=== PATIENT | female | born 1995 | race Caucasian/White ===

== ENCOUNTER → 2018-06-13 | Outpatient (CLI) | payer OTHER ==
--- NOTE | 2018-06-13 15:29 | US ---
EXAMINATION TYPE: US groin LT DATE OF EXAM: 06/13/2018 COMPARISON: NONE CLINICAL HISTORY: 22 year-old female I89.0 Lymphedema, not elsewhere classified. Palpable area within the left groin, noticed 3-4 days ago, currently on AB's Technique: Multiple sonographic images in the left inguinal region at the site of palpable concern. FINDINGS: Karate Teacher notes: Scanned over the patient's area of concern demonstrating a 4.8 x 1.3cm lymph node. This lymph node is enlarged, thickened, and hyperemic. IMPRESSION: An enlarged, thickened, and hyperemic 4.8 x 1.3 cm left inguinal lymph node at the palpable site. Thi s could reflect lymphadenitis or lymphadenopathy secondary to an upstream infectious/inflammatory pro cess. Follow-up with treatment to ensure improvement. If the finding persists or enlarges, the area c an be reimaged.
== END | disposition home or self-care (01) ==
LOC: RADUSWWP 14:10
PROVIDERS: ATTEND Family Medicine
DX: R59.0 Localized enlarged lymph nodes (principal); I89.0 Lymphedema, not elsewhere classified

== ENCOUNTER 2020-10-11 19:45 | Emergency (ER) | payer OTHER ==
[2020-10-11] MEDS ORDERED: SODIUM CHLORIDE 0.9% 1,000 ML IV ONE (20:07)
[2020-10-11] MEDS ORDERED: METOCLOPRAMIDE 5 MG/ML 2 ML VIAL IVP STA (20:09)
[2020-10-11] MEDS ORDERED: SODIUM CHLORIDE 0.9% 1,000 ML IV SCH (20:15)
[2020-10-11] MEDS ORDERED: PYRIDOXINE 100 MG/ML 1 ML VIAL IVP SCH (20:15)
[2020-10-11 20:33] LABS: Basophils % (A) 0 %; Eosinophils # (A) 0.2 k/uL (0-0.7); Eosinophils % (A) 1 %; HCT 42.6 % (34.0-46.0); HGB 14.6 gm/dL (11.4-16.0); Lymphocytes # (A) 1.3 k/uL (1.0-4.8); Lymphocytes % (A) 6 %; MCH 31.6 pg (25.0-35.0); MCHC 34.3 g/dL (31.0-37.0); MCV 92.1 fL (80.0-100.0); Mean Platelet Volume 9.3; Monocytes # (A) 0.7 k/uL (0-1.0); Monocytes % (A) 4 %; Neutrophils # (A) 17.5 k/uL (1.3-7.7); Neutrophils % (A) 88 %; Platelet Count 228 k/uL (150-450); RBC 4.63 m/uL (3.80-5.40); RDW 12.8 % (11.5-15.5); WBC 19.9 k/uL (3.8-10.6)
[2020-10-11 20:37] LABS: Appearance,Urine Cloudy (Clear); Bacteria,Urine Rare /hpf; Bilirubin,Urine Negative (Negative); Blood,Urine Negative (Negative); Color,Urine Yellow; Glucose,Urine (UA) Negative (Negative); Ketones,Urine Trace (Negative); Leukocyte Esterase,Urine Large (Negative); Mucus,Urine Moderate /hpf; Nitrite,Urine Negative (Negative); PH, Urine 5.5 (5.0-8.0); Protein,Urine 1+ (Negative); RBC,Urine 4 /hpf (0-5); Squamous Epithelial Cell,Urine 14 /hpf (0-4); Urobilinogen,Urine <2.0 mg/dL (<2.0); WBC,Urine 23 /hpf (0-5)
[2020-10-11 21:06] LABS: ALT 12 U/L (4-34); AST 25 U/L (14-36); African American GFR (CKD) >90 (>60 ml/min/1.73 sqM); Albumin 4.6 g/dL (3.5-5.0); Alkaline Phosphatase 60 U/L (38-126); Anion Gap 11 mmol/L; Blood Urea Nitrogen 9 mg/dL (7-17); Calcium 9.9 mg/dL (8.4-10.2); Carbon Dioxide 24 mmol/L (22-30); Chloride 105 mmol/L (98-107); Glucose 109 mg/dL (74-99); Magnesium 1.9 mg/dL (1.6-2.3); Non-African American GFR(CKD) >90 (>60 ml/min/1.73 sqM); Potassium 3.9 mmol/L (3.5-5.1); Sodium 140 mmol/L (137-145); Total Bilirubin 0.6 mg/dL (0.2-1.3); Total Protein 7.9 g/dL (6.3-8.2)
--- NOTE | 2020-10-11 21:57 | ED ---
Nausea/Vomiting/Diarrhea HPI - General Chief complaint: Nausea/Vomiting/Diarrhea Stated complaint: Vomiting, 15 weeks Time Seen by Provider: 10/11/20 19:56 Source: patient, family Mode of arrival: wheelchair Limitations: no limitations - History of Present Illness Initial comments: 25-year-old female who is currently presenting today for chief complaint of nausea and vomiting since 4 PM today. Patient states she believes she ate something bad. She states that she has been nauseated throughout the entire , and initially had what she thought was hyperemesis but states she was not formally diagnosed by Dr. Salter. Patietn states she has consistent nausea, but the vomiting has stopped x 2 weeks and began again at 4PM today. Pt denies abdominal pain, pelvic pain, vomiting blood, blood in stools, diarrhea, flank pain, dysuria, urgency frequency or vaginal discharge. Patietn denies fevers. Patient appears nontoxic in no acute distress on arrival. Patient HR is elvated. Pt denies chest pain or shortness of breath. - Related Data Home Medications Medication Instructions Recorded Confirmed No Known Home Medications 10/11/20 10/11/20 Allergies Allergy/AdvReac Type Severity Reaction Status Date / Time No Known Allergies Allergy Verified 10/11/20 20:39 Review of Systems ROS Statement: Those systems with pertinent positive or pertinent negative responses have been documented in the HPI. ROS Other: All systems not noted in ROS Statement are negative. Past Medical History Additional Past Medical History / Comment(s): migraines, abdominal pain and blood in stool History of Any Multi-Drug Resistant Organisms: None Reported Past Surgical History: No Surgical Hx Reported Additional Past Anesthesia/Blood Transfusion Reaction / Comment(s): never had anesthesia Past Psychological History: No Psychological Hx Reported Smoking Status: Current every day smoker Past Alcohol Use History: None Reported Past Drug Use History: None Reported General Exam - General Exam Comments Initial Comments: General: The patient is awake and alert, in no distress Eye: +3 mm pupils are equal, round and reactive to light, extra-ocular movements are intact. No nystagmus. There is normal conjunctiva bilaterally. No signs of icterus. Ears, nose, mouth and throat: There are moist mucous membranes and no oral lesions. Neck: The neck is supple, there is no tenderness or JVD. Cardiovascular: There is a regular rate and rhythm. No murmur, rub or gallop is appreciated. Respiratory: Lungs are clear to auscultation, respirations are non-labored, breath sounds are equal. No wheezes, stridor, rales, or rhonchi. Gastrointestinal: Soft, non-distended, non-tender abdomen without masses or organomegaly noted. There is no rebound or guarding present. Musculoskeletal: Normal ROM, no tenderness. Strength 5/5. Sensation intact. Radial pulses equal bilaterally 2+. Neurological: A&O x 3. CN II-XII intact grossly, There are no obvious motor or sensory deficits. Coordination appears grossly intact. Speech is normal. Skin: Skin is warm and dry and no rashes or lesions are noted. Psychiatric: Cooperative, appropriate mood & affect, normal judgment. Limitations: no limitations Course Vital Signs 10/11/20 10/11/20 19:48 22:00 Temperature 97.9 F 98.7 F Pulse Rate 103 H 63 Respiratory 20 18 Rate Blood Pressure 98/94 100/59 O2 Sat by Pulse 97 97 Oximetry Medical Decision Making - Medical Decision Making Leukocytosis however no fevers patient appears nontoxic. She has benign abdominal exam she denies vaginal discharge she denies urinary symptoms urine sample is contaminated. Culture pending. Patient has no flank or back pain. Patient has not had vomiting since reglan. pt hydrated. she states she is SO much better--discussed white count, recommended repeat labs. Patient is agreeable to care plan and discharge. Dr Prado agreeable to care plan. - Lab Data Result diagrams: 10/11/20 20:16 10/11/20 20:16 Lab Results 10/11/20 10/11/20 10/11/20 Range/Units 20:16 20:16 20:16 WBC 19.9 H (3.8-10.6) k/uL RBC 4.63 (3.80-5.40) m/uL Hgb 14.6 (11.4-16.0) gm/dL Hct 42.6 (34.0-46.0) % MCV 92.1 (80.0-100.0) fL MCH 31.6 (25.0-35.0) pg MCHC 34.3 (31.0-37.0) g/dL RDW 12.8 (11.5-15.5) % Plt Count 228 (150-450) k/uL MPV 9.3 Neutrophils % 88 % Lymphocytes % 6 % Monocytes % 4 % Eosinophils % 1 % Basophils % 0 % Neutrophils # 17.5 H (1.3-7.7) k/uL Lymphocytes # 1.3 (1.0-4.8) k/uL Monocytes # 0.7 (0-1.0) k/uL Eosinophils # 0.2 (0-0.7) k/uL Basophils # 0.0 (0-0.2) k/uL Sodium 140 (137-145) mmol/L Potassium 3.9 (3.5-5.1) mmol/L Chloride 105 (98-107) mmol/L Carbon Dioxide 24 (22-30) mmol/L Anion Gap 11 mmol/L BUN 9 (7-17) mg/dL Creatinine 0.57 (0.52-1.04) mg/dL Est GFR (CKD-EPI)AfAm >90 (>60 ml/min/1.73 sqM) Est GFR (CKD-EPI)NonAf >90 (>60 ml/min/1.73 sqM) Glucose 109 H (74-99) mg/dL Calcium 9.9 (8.4-10.2) mg/dL Magnesium 1.9 (1.6-2.3) mg/dL Total Bilirubin 0.6 (0.2-1.3) mg/dL AST 25 (14-36) U/L ALT 12 (4-34) U/L Alkaline Phosphatase 60 (38-126) U/L Total Protein 7.9 (6.3-8.2) g/dL Albumin 4.6 (3.5-5.0) g/dL Urine Color Yellow Urine Appearance Cloudy H (Clear) Urine pH 5.5 (5.0-8.0) Ur Specific Manquin 1.030 (1.001-1.035) Urine Protein 1+ H (Negative) Urine Glucose (UA) Negative (Negative) Urine Ketones Trace H (Negative) Urine Blood Negative (Negative) Urine Nitrite Negative (Negative) Urine Bilirubin Negative (Negative) Urine Urobilinogen <2.0 (<2.0) mg/dL Ur Leukocyte Esterase Large H (Negative) Urine RBC 4 (0-5) /hpf Urine WBC 23 H (0-5) /hpf Ur Squamous Epith Cells 14 H (0-4) /hpf Urine Bacteria Rare H (None) /hpf Urine Mucus Moderate H (None) /hpf Disposition Clinical Impression: Vomiting, Leukocytosis Disposition: HOME SELF-CARE Condition: Good Instructions (If sedation given, give patient instructions): Nausea and Vomiting in (ED) Additional Instructions: Please use medication as discussed. Please follow-up with OBGYN in the next 2-3 days. Return for worsening symptoms. Please return to emergency room if the symptoms increase or worsen or for any other concerns. Is patient prescribed a controlled substance at d/c from ED?: No Referrals: Davie Salter DO [Primary Care Provider] - 1-2 days Time of Disposition: 22:37
[2020-10-11 22:03] VITALS: BP 100/59; PULSE 63; RESP 18; TEMP 98.7
== END 2020-10-11 23:01 | disposition home or self-care (01) ==
LOC: EC 19:45
DX: O21.9 Vomiting of pregnancy, unspecified (principal); O99.112 Other diseases of the blood and blood-forming organs and certain disorders involving the immune mechanism complicating pregnancy, second trimester; O99.332 Smoking (tobacco) complicating pregnancy, second trimester; D72.829 Elevated white blood cell count, unspecified; F17.200 Nicotine dependence, unspecified, uncomplicated; Z3A.15 15 weeks gestation of pregnancy
CPT/HCPCS: 36415; 80053; 83735; 85025; 81001; 87086; 99284; 96374; 96375; 96361; J3415; J2765

== ENCOUNTER 2021-02-04 00:42 | Outpatient (CLI) | payer OTHER ==
[2021-02-04 01:43] LABS: Amorphous Sediment,Urine Few /hpf; Appearance,Urine Cloudy (Clear); Bacteria,Urine Rare /hpf; Bilirubin,Urine Negative (Negative); Blood,Urine Negative (Negative); Color,Urine Yellow; Glucose,Urine (UA) Negative (Negative); Ketones,Urine Negative (Negative); Leukocyte Esterase,Urine Large (Negative); Mucus,Urine Rare /hpf; Nitrite,Urine Negative (Negative); PH, Urine 7.5 (5.0-8.0); Protein,Urine Negative (Negative); RBC,Urine 4 /hpf (0-5); Specific Gravity,Urine 1.012 (1.001-1.035); Squamous Epithelial Cell,Urine 8 /hpf (0-4); Urobilinogen,Urine <2.0 mg/dL (<2.0); WBC,Urine 20 /hpf (0-5)
[2021-02-04 03:49] VITALS: BP 118/72; PULSE 95; RESP 18; TEMP 97.9
--- NOTE | 2021-02-19 08:41 | P.MSEPDOC ---
Presenting Problems - Arrival Data Date of Arrival on Unit: 02/04/21 Time of Arrival on Unit: 00:42 Mode of Transport: Ambulatory - Complaint OB-Reason for Admission/Chief Complaint: Possible Onset of Labor Comment: Pt arrives today with abdominal cramping for the last 2 hours. states she. originally felt like it may have been gas pain or that she had to use the bathroom but. the cramping hasnt gone away. Medical History - Information : 1 Para: 0 Term: 0 : 0 Abortions: Spontaneous or Elective: 0 Number of Living Children: 0 - Gestational Age Gestational Age by ADELAIDE (wks/days): 32 Weeks and 2 Days Review of Systems - Review of Systems Constitutional: No problems Breast: No problems ENT: No problems Cardiovascular: No problems Respiratory: No problems Gastrointestinal: No problems Genitourinary: No problems Musculoskeletal: No problems Neurological: No problems Skin: No problems Vital Signs - Temperature Temperature: 97.9 F Temperature Source: Oral - Pulse Right Brachial Pulse Rate: 95 Pulse Assessment Method: Automatic Cuff - Respirations Respiratory Rate: 18 Oxygen Delivery Method: Room Air O2 Sat by Pulse Oximetry: 98 - Blood Pressure Right Arm Blood Pressure: 118/72 Blood Pressure Mean: 87 Blood Pressure Source: Automatic Cuff Medical Screen Scoring - Cervical Exam Dilation (cm): 0 Effacement (%): 0 Station: -3 Membranes: Intact - Uterine Contractions Frequency From (mins): 2 Frequency To (mins): 10 Duration From (seconds): 35 Duration To (seconds): 60 Intensity: Absent Resting: Soft to palpation - Assessment - Baby A Baseline FHR: 135 Heart Rate - NICHD Category: Category I (Normal) NST: Reactive Physician Notification - Physician Notified Physician Notified Date: 02/04/21 Physician Notified Time: 00:37 Physician: Davie Salter New Order Received: Yes - Notification Comment Comment: This RN notified of negative FFN, UA results, pt not feeling any irregular contractions and reactive NST. Orders to d/c home. Maternal Triage Index - Stat/Priority 1 Stat Priority 1: No - Urgent/Priority 2 Urgent Priority 2: Yes Provider Notified: Davie Salter Provider Notified Time: 00:53 Criteria Met for Priority 2: <34 wks c/o of, or detectable, uterine ctx. Notified by Vinnie Benítez - Non-Urgent/Priority 4 Non-Urgent Priority 4: No - Scheduled/Requesting Priority 5 Scheduled/Requesting Priority 5: No Disposition - Disposition OB Disposition: Discharge to home, Written follow up instructions reviewed Discharge Date: 02/04/21 Discharge Time: 03:41 I agree with the RN Medical Screening Exam: Yes Case reviewed; plan agreed upon as documented in EMR&OBIX.: Yes Diagnosis: FALSE LABOR BEFORE 37 COMPLETED WEEKS OF GEST, THIRD TRI
== END 2021-02-04 03:41 | disposition home or self-care (01) ==
LOC: FBPOP 00:42
PROVIDERS: ATTEND Obstetrics & Gynecology
DX: O47.03 False labor before 37 completed weeks of gestation, third trimester (principal); Z3A.32 32 weeks gestation of pregnancy
CPT/HCPCS: 59025; 82731; 81001; G0463; 99213

== ENCOUNTER 2021-03-07 23:26 | Outpatient (CLI) | payer OTHER ==
[2021-03-08] LABS: Amphetamine Screen,Urine Not Detected (NotDetected); Barbiturate Screen,Urine Not Detected (NotDetected); Benzodiazepines Screen,Urine Not Detected (NotDetected); Cocaine Screen,Urine Not Detected (NotDetected); Methadone Screen, Urine Not Detected (NotDetected); Opiate Screen,Urine Not Detected (NotDetected); Oxycodone Screen, Urine Not Detected (NotDetected); Phencyclidine Screen,Urine Not Detected (NotDetected); Tricyclic Antidepressant,Urine Not Detected (NotDetected); Urn Cannabinoid Scrn Detected (NotDetected)
[2021-03-08 00:04] VITALS: BP 134/85; PULSE 96; RESP 18; TEMP 97.5
--- NOTE | 2021-03-16 06:05 | P.MSEPDOC ---
Presenting Problems - Arrival Data Date of Arrival on Unit: 03/07/21 Time of Arrival on Unit: 23:26 Mode of Transport: Wheelchair - Complaint OB-Reason for Admission/Chief Complaint: NST, Observation/Evaluation Comment: Here for serial BPs & NST per Dr. Siegel. Medical History - Information : 1 Para: 0 Term: 0 : 0 Abortions: Spontaneous or Elective: 0 Number of Living Children: 0 - Gestational Age Gestational Age by ADELAIDE (wks/days): 36 Weeks and 6 Days - History Complications: Smoker, Hx. Substance Abuse Comment: Marijuana Review of Systems - Review of Systems Constitutional: No problems Breast: No problems ENT: No problems Cardiovascular: No problems Respiratory: No problems Gastrointestinal: No problems Genitourinary: No problems Musculoskeletal: No problems Neurological: No problems Skin: No problems Vital Signs - Temperature Temperature: 97.5 F Temperature Source: Temporal Artery Scan - Pulse Right Pulse Oximetery Pulse Rate: 96 Pulse Assessment Method: Pulse Oximetry - Respirations Respiratory Rate: 18 Oxygen Delivery Method: Room Air O2 Sat by Pulse Oximetry: 99 - Blood Pressure Right Arm Blood Pressure: 134/85 Blood Pressure Mean: 101 Blood Pressure Source: Automatic Cuff Medical Screen Scoring - Uterine Contractions Intensity: Absent Resting: Soft to palpation - Assessment - Baby A Baseline FHR: 150 Heart Rate - NICHD Category: Category I (Normal) NST: Reactive Physician Notification - Physician Notified Physician Notified Date: 03/08/21 Physician Notified Time: 23:53 Physician: Azeem Siegel New Order Received: Yes - Notification Comment Comment: Pt here after speak with Dr. Siegel. regarding her BPs at home. 135/89 & 123/98 were the. BPs that she had at home. Pt states that she has not. had any problems with her BP in the past and that she. has not had any issues with her BP this . Pt. states that she was taking her BP at home just to be. safe and that she was not instructed to do so by her. MD. Pt also sees MFM to keep an eye on the baby d/t. possible SGA. Spots in vision are present a few times a. day per patient. Pt states that she saw spots when. she was not as well. RN spoke with Dr. Siegel regarding. patient's BPs being WNL. NST reactive, no concerns at. this time. Per Dr. Siegel, pt may DC home and follow. up with Dr. Salter in the office. Maternal Triage Index - Maternal Triage Index Presenting for scheduled procedure w/no complaint: No - Stat/Priority 1 Stat Priority 1: No - Urgent/Priority 2 Urgent Priority 2: No - Prompt/Priority 3 Prompt Priority 3: No - Non-Urgent/Priority 4 Non-Urgent Priority 4: Yes Criteria Met for Priority 4: Pt here for serial BPs Disposition - Disposition OB Disposition: Discharge to home Discharge Date: 03/08/21 Discharge Time: 00:00 I agree with the RN Medical Screening Exam: Yes Case reviewed; plan agreed upon as documented in EMR&OBIX.: Yes Diagnosis: RELATED CONDITIONS, UNSPECIFIED, THIRD TRIMESTER (No evidence of hypertension. monitoring was reassuring. At this time there is no evidence of maternal or compromise and patient's felt be stable for discharge home follow up with her primary dental financial coordinator as scheduled.)
== END 2021-03-08 | disposition home or self-care (01) ==
LOC: FBPOP 23:26
PROVIDERS: ATTEND Obstetrics & Gynecology
DX: O26.893 Other specified pregnancy related conditions, third trimester (principal); R03.0 Elevated blood-pressure reading, without diagnosis of hypertension; O99.333 Smoking (tobacco) complicating pregnancy, third trimester; F17.200 Nicotine dependence, unspecified, uncomplicated; Z3A.36 36 weeks gestation of pregnancy
CPT/HCPCS: 59025; 80306; G0463; 99213

== ENCOUNTER 2021-03-28 22:29 | Inpatient (IN) | payer OTHER ==
[~2021-03-28 22:29] MED LIST: ROPIVACAINE 5MG/ML 20ML VIAL ONE; SODIUM CHLORIDE 0.9% 100 ML BAG ONE; fentaNYL (PF) 50 MCG/ML 5 ML AMP ONE
[2021-03-29] MEDS: LACTATED RINGERS 1,000 ML IV SCH ×3 (00:07→14:22)
[2021-03-29 00:23] LABS: Basophils % (A) 0 %; Eosinophils # (A) 0.1 k/uL (0-0.7); Eosinophils % (A) 1 %; HCT 35.9 % (34.0-46.0); HGB 11.5 gm/dL (11.4-16.0); Hypochromasia Moderate; Lymphocytes # (A) 1.6 k/uL (1.0-4.8); Lymphocytes % (A) 15 %; MCH 26.5 pg (25.0-35.0); Mean Platelet Volume 11.8; Monocytes # (A) 0.4 k/uL (0-1.0); Monocytes % (A) 4 %; Neutrophils # (A) 7.8 k/uL (1.3-7.7); Neutrophils % (A) 76 %; Platelet Count 160 k/uL (150-450); Poikilocytosis Slight; RBC 4.32 m/uL (3.80-5.40); RDW 15.5 % (11.5-15.5); WBC 10.2 k/uL (3.8-10.6)
[2021-03-29 00:49] LABS: Amphetamine Screen,Urine Not Detected (NotDetected); Barbiturate Screen,Urine Not Detected (NotDetected); Benzodiazepines Screen,Urine Not Detected (NotDetected); Cocaine Screen,Urine Not Detected (NotDetected); Methadone Screen, Urine Not Detected (NotDetected); Opiate Screen,Urine Not Detected (NotDetected); Oxycodone Screen, Urine Not Detected (NotDetected); Phencyclidine Screen,Urine Not Detected (NotDetected); Tricyclic Antidepressant,Urine Not Detected (NotDetected); Urn Cannabinoid Scrn Detected (NotDetected)
[2021-03-29] MEDS ORDERED: TERBUTALINE 1 MG/ML VIAL SQ PRN (06:18)
[2021-03-29] MEDS ORDERED: CARBOPROST TROMETHAMINE 250 MCG/ML 1 ML AMP IM PRN (06:18)
[2021-03-29] MEDS ORDERED: METHYLERGONOVINE 0.2 MG/ML 1 ML AMP IM PRN (06:18)
[2021-03-29] MEDS ORDERED: OXYTOCIN 10 UNIT/ML 1 ML VIAL IM PRN (06:18)
[2021-03-29] MEDS ORDERED: LIDOCAINE 0.5% (PF) 5 MG/ML (50 ML SDV) SQ PRN (06:18)
[2021-03-29] MEDS ORDERED: OXYTOCIN 30 UNITS/500 ML NS 30 UNIT in SALINE 1 500ML.BAG IV SCH (06:30)
--- NOTE | 2021-03-29 06:47 | P.HPOB ---
History of Present Illness H&P Date: 03/29/21 Chief Complaint: Mucous plug This patient is a 25-year-old avid a 1 para 0 female estimated date of confinement 03/30/2021 estimated gestational age 39-6/7 weeks who presented late last night with complaints of mucous plug. Patient had evaluation and there was no evidence of rupture of membranes, however on monitoring patient was noted to have occasional variable decelerations. These were mild, but recurrent, and in general the heart tones were reassuring with good variability. Patient's care is per Dr. Salter and is complicated by several factors including substance abuse (this patient uses marijuana on a daily basis), abnormal quad screen, and marginal placental cord insertion. Patient was referred to maternal- medicine and was supposed to be getting nonstress tests twice week and biophysical profile once a week. Patient however has been noncompliant with a lot of this testing. Review of Systems Genitourinary: Reports Menstruation: Reports amenorrhea Past Medical History Additional Past Medical History / Comment(s): migraines, abdominal pain and blood in stool History of Any Multi-Drug Resistant Organisms: None Reported Past Surgical History: No Surgical Hx Reported Additional Past Surgical History / Comment(s): Colonoscopy Past Anesthesia/Blood Transfusion Reactions: No Reported Reaction Additional Past Anesthesia/Blood Transfusion Reaction / Comment(s): never had anesthesia Past Psychological History: No Psychological Hx Reported Smoking Status: Current every day smoker Past Alcohol Use History: None Reported Past Drug Use History: Marijuana - Past Family History Mother Family Medical History: Thyroid Disorder Brother(s) Additional Family Medical History / Comment(s): Cerebral Palsy Medications and Allergies Home Medications Medication Instructions Recorded Confirmed Type Doxylamine Succinate [Unisom] 25 mg PO DAILY 02/04/21 03/07/21 History Pnv No.95/Ferrous Fum/Folic AC 1 each PO DAILY 02/04/21 03/07/21 History [ Multivitamin Tablet] Allergies Allergy/AdvReac Type Severity Reaction Status Date / Time No Known Allergies Allergy Verified 03/28/21 22:38 Exam Vital Signs Temp Pulse Resp BP 03/29/21 00:00 98.3 F 80 16 120/75 03/28/21 23:37 97.0 F L 86 16 131/85 Intake and Output 03/28/21 03/28/21 03/29/21 14:59 22:59 06:59 Other: # Voids 2 Weight 64.41 kg 64.41 kg - OBG Physical Exam Abdomen: bowel sounds normal, no diffuse tenderness, no bruit present, no guarding noted, no hepatomegaly, no splenomegaly, no mass Vulva: both: normal Vagina: normal moisture, no discharge Cervix: no lesion (Cervix is 2-3 cm 50% effaced), no discharge Uterus: enlarged Results Renal blood work shows she is O positive, rubella immune, hepatitis B negative, RPR nonreactive, HIV is nonreactive positive patient had a positive Chlamydia with a negative test of cure. Group B strep was negative, ultrasounds per [facility] shows a marginal cord insertion. Result Diagrams: 03/29/21 00:02 Abnormal Lab Results - Last 24 Hours (Table) 03/28/21 03/29/21 Range/Units 23:55 00:02 Neutrophils # 7.8 H (1.3-7.7) k/uL U Marijuana (THC) Screen Detected H (NotDetected) Assessment and Plan Assessment: This is a 25-year-old 1 para 0 female 39-6/7 weeks gestation who is admitted last evening for observation due to variable decelerations on heart monitoring, known marginal cord insertion, history of abnormal quad screen, and daily substance abuse. Patient was initially admitted for observati on overnight. She is in early labor. Plan at this time is to proceed with rupture membranes and augmentation of labor. I've discussed treatment plan with the patient and her partner. Dr. Salter will take over management of labor at this time. (1) 40 weeks gestation of Current Visit: Yes Status: Acute Code(s): Z3A.40 - 40 WEEKS GESTATION OF SNOMED Code(s): 36390770 (2) Marginal insertion of umbilical cord Current Visit: Yes Status: Acute Code(s): QII5598 - SNOMED Code(s): 99334805 (3) Substance abuse affecting in third trimester, antepartum Current Visit: Yes Status: Acute Code(s): O99.323 - DRUG USE COMPLICATING , THIRD TRIMESTER SNOMED Code(s): 88682166 (4) Normal labor Current Visit: Yes Status: Acute Code(s): O80 - ENCOUNTER FOR FULL-TERM UNCOMPLICATED DELIVERY; Z37.9 - OUTCOME OF DELIVERY, UNSPECIFIED SNOMED Code(s): 19728947
[2021-03-29] MEDS ORDERED: BUTORPHANOL 1 MG/ML 1 ML VIAL IV PRN (07:05)
--- NOTE | 2021-03-29 07:16 | P.MSEPDOC ---
Presenting Problems - Arrival Data Date of Arrival on Unit: 03/28/21 Time of Arrival on Unit: 23:37 Mode of Transport: Ambulatory - Complaint OB-Reason for Admission/Chief Complaint: Possible Onset of Labor Comment: Patient arrives to triage and states that she has been losing part of her. mucous plug and had some spotting today. Patient states her contractions have become more regular and are approximately 10 minutes apart. Patient states she was dilitated to 1.[address] Salter. Medical History - Information : 1 Para: 0 Term: 0 : 0 Abortions: Spontaneous or Elective: 0 Number of Living Children: 0 - Gestational Age Gestational Age by ADELAIDE (wks/days): 39 Weeks and 6 Days - History Complications: Smoker, Hx. Substance Abuse Comment: Patient uses THC Daily Review of Systems - Review of Systems Constitutional: No problems Breast: No problems ENT: No problems Cardiovascular: No problems Respiratory: No problems Gastrointestinal: No problems Genitourinary: No problems Musculoskeletal: No problems Neurological: No problems Skin: No problems Vital Signs - Temperature Temperature: 98.3 F Temperature Source: Temporal Artery Scan - Pulse Pulse Oximetery Pulse Rate: 80 Pulse Assessment Method: Automatic Cuff - Respirations Respiratory Rate: 16 Oxygen Delivery Method: Room Air - Blood Pressure Sitting Blood Pressure: 120/75 Blood Pressure Mean: 90 Blood Pressure Source: Automatic Cuff Medical Screen Scoring - Cervical Exam Dilation (cm): 1.5 Effacement (%): 50 Station: -2 Membranes: Intact - Uterine Contractions Resting: Soft to palpation - Assessment - Baby A Baseline FHR: 135 Heart Rate - NICHD Category: Category I (Normal) Physician Notification - Physician Notified Physician Notified Date: 03/29/21 Physician Notified Time: 22:46 Physician: Azeem Siegel New Order Received: Yes - Notification Comment Comment: Recheck cervix in one hour, if no change made, okay to discharge patient home with instructions. 2319: Orders given to watch patient for a total of 2 hours if any more variable decelerations noted call physician with report, patient to come back to the hospital tomorrow am between 8-10am for BPP. [id number] Physician reviews strip more variable decelerations noted, orders given to admit patient as an OBV at this time, obtain iv access, intiate fluids, draw CBC and type and screen and send a urine tox screen at this time. Orders given for continuous monitoring. Maternal Triage Index - Prompt/Priority 3 Prompt Priority 3: Yes Criteria Met for Priority 3: Patient is 39 5/7 arrives to unit with complaint of contractions that have intensified intensity and frequency. Patient states she lost her mucus plug today and noted some "blood" in the discharge. 2 variable decelerations noted coming off of an acceleration Disposition - Disposition OB Disposition: Admit, LDRP Suite Transferred to:: Suite 14 I agree with the RN Medical Screening Exam: Yes Case reviewed; plan agreed upon as documented in EMR&OBIX.: Yes Diagnosis: ENCOUNTER FOR FULL-TERM UNCOMPLICATED DELIVERY
[2021-03-29] MEDS ORDERED: diphenhydrAMINE 25 MG CAP PO PRN (21:10)
[2021-03-29] MEDS ORDERED: diphenhydrAMINE 50 MG/ML 1 ML VIAL IVP PRN ×2 (21:10)
[2021-03-29] MEDS ORDERED: ACETAMINOPHEN TAB 325 MG TAB PO PRN (21:10)
[2021-03-29] MEDS ORDERED: HYDROCORTISONE 2.5% RECTAL CREAM 30 GM TUBE RECTAL PRN (21:10)
[2021-03-29] MEDS ORDERED: ZOLPIDEM 5 MG TAB PO PRN (21:10)
[2021-03-29] MEDS ORDERED: SIMETHICONE 80 MG CHEWABLE PO PRN (21:10)
[2021-03-29] MEDS ORDERED: LANOLIN CREAM 5 GM TUBE TOPICAL PRN (21:10)
[2021-03-29] MEDS ORDERED: BENZOCAINE/MENTHOL SPRAY 1 GM/SPRAY AEROSOL TOPICAL PRN (21:10)
[2021-03-29] MEDS ORDERED: diphenhydrAMINE 50 MG CAP PO PRN (21:10)
--- NOTE | 2021-03-29 21:17 | P.PROBDLV ---
Vaginal Delivery Note - . Vaginal Delivery Note: Progressed complete and pushing with heart rate between 80s and 100s with pushing and not recovering to above 105. The sig on for almost 8-10 minutes on she was applied she was breathing baby on slowly but she was in significant pain and was asking for assistance in delivery and with the heart tones then 70s to 80s vacuum was applied due to heart tones it was pumped to 40 mmHg and with gentle traction and baby was brought down there was a pop off at that point we a bandoned the vacuum was only one pop off and she was able to bring the baby down from +2 to in 1 push and then delivered a viable female over intact perineum from left occiput anterior position. Nuchal cord 1 was noted and easily reduced and then anterior posterior shoulders were easily delivered gentle downward upper traction followed by the remainder the baby. Mouth nares were then bulb suctioned and baby was placed on mother's abdomen where nursery personnel was present and assumed care and the umbilical course to pulsate for 30 seconds prior to clamping cutting. Once this was accomplished placenta was then delivered intact Pitocin was added to the IV. Left periurethral/vaginal wall avulsion was then reapproximated with one interrupted 3-0 Vicryl suture fundal Xylocaine for analgesia. Mother and baby are both stable following delivery. scores were 9 and 9 at one and 5 minutes respectively and the weight was 6 lbs. 1 oz.
[2021-03-29] MEDS: IBUPROFEN 600 MG TAB PO SCH (23:38)
[2021-03-30] MEDS: LACTATED RINGERS 1,000 ML IV SCH ×3 (00:44→00:46)
[2021-03-30] MEDS: IBUPROFEN 600 MG TAB PO SCH ×3 (05:51→18:33)
--- NOTE | 2021-03-30 07:34 | P.PNOBGVD ---
Subjective - Subjective Principal diagnosis: day 1 Interval history: Overall Britni is doing very well. She is ambulating, voiding and tolerating her diet. She voices no complaints. Patient reports: Reports appetite normal, Reports voiding normally, Reports pain well controlled, Reports ambulating normally : doing well Objective - Latest Vital Signs Latest vital signs: Vital Signs Temp Pulse Resp BP Pulse Ox 03/30/21 04:00 99.1 F 78 17 126/80 97 03/29/21 23:15 82 152/82 03/29/21 22:45 75 153/83 03/29/21 22:15 76 141/84 03/29/21 22:00 78 136/80 03/29/21 21:45 80 135/75 03/29/21 21:30 82 134/75 03/29/21 21:15 98.7 F 90 18 135/72 100 Intake and Output 03/29/21 03/30/21 03/30/21 22:59 06:59 14:59 Intake Total 61.867 Balance 61.867 Intake: Intake, IV Titration 61.867 Amount Oxytocin 30 Units/500 ml 61.867 Ns 30 unit In Saline 1 500ml.bag @ Per Protocol IV .Q0M [facility] Rx#:[id number] Other: # Voids 1 - Exam Lungs: bilateral: normal Chest: Normal S1, Normal S2 Extremities: Present: normal Abdomen: Present: normal appearance, soft Uterus: Present: normal, firm
[2021-03-30] MEDS: SENNOSIDES-DOCUSATE SODIUM 1 EACH TAB PO SCH (07:45)
[2021-03-31] MEDS: IBUPROFEN 600 MG TAB PO SCH ×3 (00:22→10:37)
[2021-03-31] MEDS: SENNOSIDES-DOCUSATE SODIUM 1 EACH TAB PO SCH ×2 (00:24→10:20)
--- NOTE | 2021-03-31 08:00 | P.DS ---
Providers Date of admission: 03/29/21 06:18 Expected date of discharge: 03/31/21 Attending physician: Azeem Siegel Primary care physician: Stated None Hospital Course: Patient is doing very well this morning day 2. She is ambulating, voiding and tolerating her diet. She voices no complaints and requests discharge home today. Vital signs are stable and afebrile. Heart regular, lungs clear, extremities are without pain. Abdomen is soft and uterus is firm. Lochia is reported light. Assessment day 2. Plan discharged home follow up with me in 6 weeks. Prescription for Motrin was born to the pharmacy. Patient Condition at Discharge: Good Plan - Discharge Summary New Discharge Prescriptions: New Ibuprofen [Motrin] 600 mg PO Q6HR PRN #30 tab PRN Reason: Pain No Action Pnv No.95/Ferrous Fum/Folic AC [ Multivitamin Tablet] 1 each PO DAILY Doxylamine Succinate [Unisom] 25 mg PO DAILY Discharge Medication List Doxylamine Succinate [Unisom] 25 mg PO DAILY 02/04/21 [History] Pnv No.95/Ferrous Fum/Folic AC [ Multivitamin Tablet] 1 each PO DAILY 02/04/21 [History] Ibuprofen [Motrin] 600 mg PO Q6HR PRN #30 tab 03/31/21 [Rx] Follow up Appointment(s)/Referral(s): Davie Salter DO [Doctor of Osteopathic Medicine] - 05/11/21 11:00 am Activity/Diet/Wound Care/Special Instructions: No heavy Lifting, limit stairs and driving, and pelvic rest. If any high temperatures, heavy bleeding, or severe pain call my office Discharge Disposition: HOME SELF-CARE
[2021-03-31 09:53] VITALS: BP 117/75; PULSE 63; RESP 20; TEMP 97.8
== END 2021-03-31 11:00 | disposition home or self-care (01) | DRG 806 ==
LOC: FBPOP 22:29 → 4FBP 23:42 → OBSVTOIN 03-29 06:18
PROVIDERS: ADMIT Obstetrics & Gynecology; ATTEND Obstetrics & Gynecology
PROC: 10E0XZZ Delivery of Products of Conception, External Approach (ICD-10-PCS; principal; 2021-03-29)
PROC: 10D07Z6 Extraction of Products of Conception, Vacuum, Via Natural or Artificial Opening (ICD-10-PCS; 2021-03-29)
DX: O69.81X0 Labor and delivery complicated by cord around neck, without compression, not applicable or unspecified (principal); O99.324 Drug use complicating childbirth; Z37.0 Single live birth; Z91.19 Patient's noncompliance with other medical treatment and regimen; G43.909 Migraine, unspecified, not intractable, without status migrainosus; O99.334 Smoking (tobacco) complicating childbirth; F17.200 Nicotine dependence, unspecified, uncomplicated; F12.90 Cannabis use, unspecified, uncomplicated; O76 Abnormality in fetal heart rate and rhythm complicating labor and delivery; Z3A.40 40 weeks gestation of pregnancy
CPT/HCPCS: 59025; 80306; 85025; 86850; 86900; 86901; 99213

== ENCOUNTER 2021-04-04 00:14 | Observation (INO) | payer OTHER ==
[2021-04-04] MEDS ORDERED: SODIUM CHLORIDE 0.9% 500 ML 500 ML IV STA (00:41)
[2021-04-04] MEDS ORDERED: ACETAMINOPHEN TAB 500 MG TAB PO STA (00:46)
[2021-04-04] MEDS ORDERED: IBUPROFEN 600 MG TAB PO STA (00:46)
--- NOTE | 2021-04-04 00:47 | ED ---
Recheck HPI - General Chief Complaint: Recheck/Abnormal Lab/Rx Stated Complaint: high BP Time Seen by Provider: 04/04/21 00:39 Source: patient Mode of arrival: wheelchair Limitations: no limitations - Related Data Home Medications Medication Instructions Recorded Confirmed Doxylamine Succinate [Unisom] 25 mg PO DAILY 02/04/21 03/07/21 Pnv No.95/Ferrous Fum/Folic AC 1 each PO DAILY 02/04/21 03/07/21 [ Multivitamin Tablet] Previous Rx's Medication Instructions Recorded Ibuprofen [Motrin] 600 mg PO Q6HR PRN #30 tab 03/31/21 Allergies Allergy/AdvReac Type Severity Reaction Status Date / Time No Known Allergies Allergy Verified 04/04/21 00:23 Review of Systems ROS Statement: Those systems with pertinent positive or pertinent negative responses have been documented in the HPI. ROS Other: All systems not noted in ROS Statement are negative. Past Medical History Past Medical History: GI Bleed Additional Past Medical History / Comment(s): migraines, abdominal pain and blood in stool History of Any Multi-Drug Resistant Organisms: None Reported Past Surgical History: No Surgical Hx Reported Additional Past Surgical History / Comment(s): Colonoscopy Past Anesthesia/Blood Transfusion Reactions: No Reported Reaction Additional Past Anesthesia/Blood Transfusion Reaction / Comment(s): never had anesthesia Past Psychological History: No Psychological Hx Reported Smoking Status: Current every day smoker Past Alcohol Use History: None Reported Past Drug Use History: Marijuana - Past Family History Mother Family Medical History: Thyroid Disorder Brother(s) Additional Family Medical History / Comment(s): Cerebral Palsy General Exam Limitations: no limitations Course Vital Signs 04/04/21 04/04/21 04/04/21 00:18 00:33 02:48 Temperature 98.5 F Pulse Rate 80 77 66 Respiratory 18 16 18 Rate Blood Pressure 153/110 141/90 106/102 O2 Sat by Pulse 97 98 99 Oximetry Medical Decision Making - Lab Data Result diagrams: 04/04/21 00:57 04/04/21 00:57 Lab Results 04/04/21 04/04/21 04/04/21 Range/Units 00:57 00:57 00:57 WBC 12.3 H (3.8-10.6) k/uL RBC 4.32 (3.80-5.40) m/uL Hgb 11.6 (11.4-16.0) gm/dL Hct 35.6 (34.0-46.0) % MCV 82.3 (80.0-100.0) fL MCH 26.8 (25.0-35.0) pg MCHC 32.5 (31.0-37.0) g/dL RDW 15.3 (11.5-15.5) % Plt Count 174 (150-450) k/uL MPV 9.8 Neutrophils % 86 % Lymphocytes % 8 % Monocytes % 4 % Eosinophils % 2 % Basophils % 0 % Neutrophils # 10.5 H (1.3-7.7) k/uL Lymphocytes # 0.9 L (1.0-4.8) k/uL Monocytes # 0.5 (0-1.0) k/uL Eosinophils # 0.2 (0-0.7) k/uL Basophils # 0.0 (0-0.2) k/uL Hypochromasia Slight PT 9.7 (9.0-12.0) sec INR 0.9 (<1.2) APTT 22.3 (22.0-30.0) sec Sodium (137-145) mmol/L Potassium (3.5-5.1) mmol/L Chloride (98-107) mmol/L Carbon Dioxide (22-30) mmol/L Anion Gap mmol/L BUN (7-17) mg/dL Creatinine (0.52-1.04) mg/dL Est GFR (CKD-EPI)AfAm (>60 ml/min/1.73 sqM) Est GFR (CKD-EPI)NonAf (>60 ml/min/1.73 sqM) Glucose (74-99) mg/dL Uric Acid (3.7-7.4) mg/dL Calcium (8.4-10.2) mg/dL Phosphorus (2.5-4.5) mg/dL Magnesium (1.6-2.3) mg/dL Total Bilirubin (0.2-1.3) mg/dL AST (14-36) U/L ALT (4-34) U/L Alkaline Phosphatase (38-126) U/L Lactate Dehydrogenase (313-618) U/L Total Protein (6.3-8.2) g/dL Albumin (3.5-5.0) g/dL Urine Color Urine Appearance (Clear) Urine pH (5.0-8.0) Ur Specific [place] (1.001-1.035) Urine Protein (Negative) Urine Glucose (UA) (Negative) Urine Ketones (Negative) Urine Blood (Negative) Urine Nitrite (Negative) Urine Bilirubin (Negative) Urine Urobilinogen (<2.0) mg/dL Ur Leukocyte Esterase (Negative) Urine RBC (0-5) /hpf Urine WBC (0-5) /hpf Ur Squamous Epith Cells (0-4) /hpf Urine Bacteria (None) /hpf Urine Mucus (None) /hpf Ur Random Creatinine 135.1 mg/dL U Random Total Protein 20 H (<12) mg/dL 04/04/21 04/04/21 Range/Units 00:57 02:12 WBC (3.8-10.6) k/uL RBC (3.80-5.40) m/uL Hgb (11.4-16.0) gm/dL Hct (34.0-46.0) % MCV (80.0-100.0) fL MCH (25.0-35.0) pg MCHC (31.0-37.0) g/dL RDW (11.5-15.5) % Plt Count (150-450) k/uL MPV Neutrophils % % Lymphocytes % % Monocytes % % Eosinophils % % Basophils % % Neutrophils # (1.3-7.7) k/uL Lymphocytes # (1.0-4.8) k/uL Monocytes # (0-1.0) k/uL Eosinophils # (0-0.7) k/uL Basophils # (0-0.2) k/uL Hypochromasia PT (9.0-12.0) sec INR (<1.2) APTT (22.0-30.0) sec Sodium 137 (137-145) mmol/L Potassium 3.9 (3.5-5.1) mmol/L Chloride 110 H (98-107) mmol/L Carbon Dioxide 20 L (22-30) mmol/L Anion Gap 7 mmol/L BUN 15 (7-17) mg/dL Creatinine 0.60 (0.52-1.04) mg/dL Est GFR (CKD-EPI)AfAm >90 (>60 ml/min/1.73 sqM) Est GFR (CKD-EPI)NonAf >90 (>60 ml/min/1.73 sqM) Glucose 101 H (74-99) mg/dL Uric Acid 4.5 (3.7-7.4) mg/dL Calcium 9.3 (8.4-10.2) mg/dL Phosphorus 3.9 (2.5-4.5) mg/dL Magnesium 2.0 (1.6-2.3) mg/dL Total Bilirubin 0.4 (0.2-1.3) mg/dL AST 34 (14-36) U/L ALT 15 (4-34) U/L Alkaline Phosphatase 188 H (38-126) U/L Lactate Dehydrogenase 499 (313-618) U/L Total Protein 6.2 L (6.3-8.2) g/dL Albumin 3.3 L (3.5-5.0) g/dL Urine Color Yellow Urine Appearance Cloudy H (Clear) Urine pH 6.5 (5.0-8.0) Ur Specific [place] 1.024 (1.001-1.035) Urine Protein Trace H (Negative) Urine Glucose (UA) Negative (Negative) Urine Ketones Negative (Negative) Urine Blood Large H (Negative) Urine Nitrite Negative (Negative) Urine Bilirubin Negative (Negative) Urine Urobilinogen <2.0 (<2.0) mg/dL Ur Leukocyte Esterase Large H (Negative) Urine RBC 96 H (0-5) /hpf Urine WBC >182 H (0-5) /hpf Ur Squamous Epith Cells 1 (0-4) /hpf Urine Bacteria Occasional H (None) /hpf Urine Mucus Few H (None) /hpf Ur Random Creatinine mg/dL U Random Total Protein (<12) mg/dL Disposition Clinical Impression: Hypertension, Fever, Weakness Disposition: ADMITTED IP TO THIS HOSP Condition: Good Is patient prescribed a controlled substance at d/c from ED?: No Referrals: None,Stated [Primary Care Provider] - 1-2 days
--- NOTE | 2021-04-04 01:08 | XR ---
EXAMINATION TYPE: XR chest 1V DATE OF EXAM: 04/04/2021 COMPARISON: NONE HISTORY: Cough. High blood pressure. TECHNIQUE: Single view FINDINGS: Heart and mediastinum are normal. Lungs are clear. Diaphragm is normal. Bony thorax appears normal. IMPRESSION: Normal chest. Normal heart.
[2021-04-04 01:12] LABS: Basophils % (A) 0 %; Eosinophils # (A) 0.2 k/uL (0-0.7); Eosinophils % (A) 2 %; HCT 35.6 % (34.0-46.0); HGB 11.6 gm/dL (11.4-16.0); Hypochromasia Slight; Lymphocytes # (A) 0.9 k/uL (1.0-4.8); Lymphocytes % (A) 8 %; MCH 26.8 pg (25.0-35.0); MCHC 32.5 g/dL (31.0-37.0); MCV 82.3 fL (80.0-100.0); Mean Platelet Volume 9.8; Monocytes # (A) 0.5 k/uL (0-1.0); Monocytes % (A) 4 %; Neutrophils # (A) 10.5 k/uL (1.3-7.7); Neutrophils % (A) 86 %; Platelet Count 174 k/uL (150-450); RBC 4.32 m/uL (3.80-5.40); RDW 15.3 % (11.5-15.5); WBC 12.3 k/uL (3.8-10.6)
[2021-04-04 01:29] LABS: INR 0.9 (<1.2); Partial Thromboplastin Time 22.3 sec (22.0-30.0); Prothrombin Time 9.7 sec (9.0-12.0)
[2021-04-04 01:33] LABS: ALT 15 U/L (4-34); AST 34 U/L (14-36); African American GFR (CKD) >90 (>60 ml/min/1.73 sqM); Albumin 3.3 g/dL (3.5-5.0); Alkaline Phosphatase 188 U/L (38-126); Anion Gap 7 mmol/L; Blood Urea Nitrogen 15 mg/dL (7-17); Calcium 9.3 mg/dL (8.4-10.2); Carbon Dioxide 20 mmol/L (22-30); Chloride 110 mmol/L (98-107); Glucose 101 mg/dL (74-99); LDH 499 U/L (313-618); Non-African American GFR(CKD) >90 (>60 ml/min/1.73 sqM); Phosphorus 3.9 mg/dL (2.5-4.5); Potassium 3.9 mmol/L (3.5-5.1); Sodium 137 mmol/L (137-145); Total Bilirubin 0.4 mg/dL (0.2-1.3); Total Protein 6.2 g/dL (6.3-8.2); Uric Acid 4.5 mg/dL (3.7-7.4)
[2021-04-04 01:35] LABS: Creatinine,Urine Random 135.1 mg/dL
[2021-04-04 02:26] LABS: Appearance,Urine Cloudy (Clear); Bacteria,Urine Occasional /hpf; Bilirubin,Urine Negative (Negative); Blood,Urine Large (Negative); Color,Urine Yellow; Glucose,Urine (UA) Negative (Negative); Ketones,Urine Negative (Negative); Leukocyte Esterase,Urine Large (Negative); Mucus,Urine Few /hpf; Nitrite,Urine Negative (Negative); PH, Urine 6.5 (5.0-8.0); Protein,Urine Trace (Negative); RBC,Urine 96 /hpf (0-5); Specific Gravity,Urine 1.024 (1.001-1.035); Squamous Epithelial Cell,Urine 1 /hpf (0-4); Urobilinogen,Urine <2.0 mg/dL (<2.0); WBC,Urine >182 /hpf (0-5)
[2021-04-04] MEDS ORDERED: NALOXONE 0.4 MG/ML 1 ML VIAL IV PRN (02:47)
[2021-04-04] MEDS ORDERED: ONDANSETRON 4 MG/2 ML VIAL IVP PRN (02:47)
[2021-04-04] MEDS ORDERED: LABETALOL 5 MG/ML VIAL MDV IVP STA (02:48)
[2021-04-04] MEDS: SODIUM CHLORIDE 0.9% 1,000 ML IV SCH ×3 (03:37→19:53)
[2021-04-04 06:07] LABS: Appearance,Urine Clear (Clear); Bilirubin,Urine Negative (Negative); Blood,Urine Trace (Negative); Color,Urine Yellow; Glucose,Urine (UA) Negative (Negative); Ketones,Urine Negative (Negative); Leukocyte Esterase,Urine Negative (Negative); Mucus,Urine Few /hpf; Nitrite,Urine Negative (Negative); Protein,Urine Negative (Negative); RBC,Urine 2 /hpf (0-5); Specific Gravity,Urine 1.018 (1.001-1.035); Urobilinogen,Urine <2.0 mg/dL (<2.0); WBC,Urine 3 /hpf (0-5)
[2021-04-04] MEDS: IBUPROFEN 600 MG TAB PO PRN ×2 (06:25→20:22)
[2021-04-04] MEDS: LABETALOL 100 MG TAB PO SCH ×2 (09:29→20:21)
--- NOTE | 2021-04-04 10:52 | P.HPOB ---
History of Present Illness H&P Date: 04/04/21 Chief Complaint: Hypertension : Hyperpyrexia Britni was seen and evaluated this morning. She was admitted to the emergency room last night for elevated blood pressures and a temperature home of 100.6. She relates that since being in the hospital her temperature is completely gone away. Uterus term initially was concern for urinary tract infection but the sample was contaminated by lochia as she delivered a baby 6 days ago. Her blood pressures in the emergency room however were significant elevated with blood pressures of 170s over 90s to 110s. That said her preeclamptic labs were all normal and it I believe the protein creatinine ratio was called to come in at 0.14 .16 which is also below the cuff margin for preeclampsia. It seems likely that she has hypertension. She did in the immediate have one or 2 slightly elevated blood pressures but well below the level for initiation of antihypertensive. She did receive a dose of labetalol in the emergency room and we have started oral labetalol here in labor and deli very and we'll watch her blood pressures closely. Her last blood pressure was 138/80 and she voices no specific complaints about headache or epigastric pain she denies any visual changes or other signs or symptoms of preeclampsia. Will have lab if they are able to calculate the official protein creatinine ratio off of her urine sample. All the questions are answered for this time continue current care. Past Medical History Past Medical History: GI Bleed Additional Past Medical History / Comment(s): migraines, abdominal pain and blood in stool History of Any Multi-Drug Resistant Organisms: None Reported Past Surgical History: No Surgical Hx Reported Additional Past Surgical History / Comment(s): Colonoscopy Past Anesthesia/Blood Transfusion Reactions: No Reported Reaction Additional Past Anesthesia/Blood Transfusion Reaction / Comment(s): never had anesthesia Past Psychological History: No Psychological Hx Reported Smoking Status: Current every day smoker Past Alcohol Use History: None Reported Past Drug Use History: Marijuana Additional Drug Use History / Comment(s): patient states she down to a cigerett a day and smokes marijuana last smoked 04/03/21 - Past Family History Mother Family Medical History: Thyroid Disorder Brother(s) Additional Family Medical History / Comment(s): Cerebral Palsy Medications and Allergies Home Medications Medication Instructions Recorded Confirmed Type Pnv No.95/Ferrous Fum/Folic AC 1 each PO DAILY 02/04/21 04/04/21 History [ Multivitamin Tablet] Ibuprofen [Motrin] 600 mg PO Q6HR PRN #30 tab 03/31/21 04/04/21 Rx Allergies Allergy/AdvReac Type Severity Reaction Status Date / Time No Known Allergies Allergy Verified 04/04/21 00:23 Exam Osteopathic Statement: *. No significant issues noted on an osteopathic structural exam other than those noted in the History and Physical/Consult. Vital Signs Temp Pulse Pulse Resp BP BP Pulse Ox 04/04/21 08:29 98.6 F 74 18 98 04/04/21 05:23 98.7 F 60 16 159/99 04/04/21 03:48 62 16 148/87 100 04/04/21 03:37 63 16 135/95 99 04/04/21 02:48 66 18 160/102 99 04/04/21 00:33 77 16 141/90 98 04/04/21 00:18 98.5 F 80 18 153/110 97 Intake and Output 04/03/21 04/04/21 04/04/21 22:59 06:59 14:59 Output Total 50 Balance -50 Output: Urine 50 Other: Voiding Method Self-Catheterization Weight 57.153 kg Results Result Diagrams: 04/04/21 00:57 04/04/21 00:57 Abnormal Lab Results - Last 24 Hours (Table) 04/04/21 04/04/21 04/04/21 Range/Units 00:57 00:57 00:57 WBC 12.3 H (3.8-10.6) k/uL Neutrophils # 10.5 H (1.3-7.7) k/uL Lymphocytes # 0.9 L (1.0-4.8) k/uL Chloride 110 H (98-107) mmol/L Carbon Dioxide 20 L (22-30) mmol/L Glucose 101 H (74-99) mg/dL Alkaline Phosphatase 188 H (38-126) U/L Total Protein 6.2 L (6.3-8.2) g/dL Albumin 3.3 L (3.5-5.0) g/dL Urine Appearance (Clear) Urine Protein (Negative) Urine Blood (Negative) Ur Leukocyte Esterase (Negative) Urine RBC (0-5) /hpf Urine WBC (0-5) /hpf Urine Bacteria (None) /hpf Urine Mucus (None) /hpf U Random Total Protein 20 H (<12) mg/dL 04/04/21 04/04/21 Range/Units 02:12 05:44 WBC (3.8-10.6) k/uL Neutrophils # (1.3-7.7) k/uL Lymphocytes # (1.0-4.8) k/uL Chloride (98-107) mmol/L Carbon Dioxide (22-30) mmol/L Glucose (74-99) mg/dL Alkaline Phosphatase (38-126) U/L Total Protein (6.3-8.2) g/dL Albumin (3.5-5.0) g/dL Urine Appearance Cloudy H (Clear) Urine Protein Trace H (Negative) Urine Blood Large H Trace H (Negative) Ur Leukocyte Esterase Large H (Negative) Urine RBC 96 H (0-5) /hpf Urine WBC >182 H (0-5) /hpf Urine Bacteria Occasional H (None) /hpf Urine Mucus Few H Few H (None) /hpf U Random Total Protein (<12) mg/dL
[2021-04-04 11:12] LABS: Protein/Creatinine Ratio,Urine 0.131
[2021-04-04] MEDS ORDERED: AMOXIC-POT CLAV 875-125MG 1 EACH TAB PO SCH ×2 (21:00→23:30)
[2021-04-05] MEDS: SODIUM CHLORIDE 0.9% 1,000 ML IV SCH (00:22)
[2021-04-05 07:36] LABS: Basophils % (A) 0 %; Eosinophils # (A) 0.2 k/uL (0-0.7); Eosinophils % (A) 2 %; HCT 34.9 % (34.0-46.0); HGB 11.1 gm/dL (11.4-16.0); Hypochromasia Moderate; Lymphocytes # (A) 1.6 k/uL (1.0-4.8); Lymphocytes % (A) 19 %; MCH 26.4 pg (25.0-35.0); MCHC 31.8 g/dL (31.0-37.0); Mean Platelet Volume 9.6; Monocytes # (A) 0.5 k/uL (0-1.0); Monocytes % (A) 6 %; Neutrophils # (A) 5.8 k/uL (1.3-7.7); Neutrophils % (A) 69 %; Platelet Count 203 k/uL (150-450); RDW 15.6 % (11.5-15.5); WBC 8.4 k/uL (3.8-10.6)
[2021-04-05 07:48] LABS: ALT 13 U/L (4-34); AST 27 U/L (14-36); African American GFR (CKD) >90 (>60 ml/min/1.73 sqM); Alkaline Phosphatase 146 U/L (38-126); Anion Gap 8 mmol/L; Blood Urea Nitrogen 10 mg/dL (7-17); Carbon Dioxide 22 mmol/L (22-30); Chloride 110 mmol/L (98-107); Glucose 79 mg/dL (74-99); Magnesium 1.9 mg/dL (1.6-2.3); Non-African American GFR(CKD) >90 (>60 ml/min/1.73 sqM); Phosphorus 4.2 mg/dL (2.5-4.5); Potassium 3.8 mmol/L (3.5-5.1); Sodium 140 mmol/L (137-145); Total Bilirubin 0.4 mg/dL (0.2-1.3); Total Protein 5.9 g/dL (6.3-8.2)
[2021-04-05] MEDS: LABETALOL 100 MG TAB PO SCH (07:57)
--- NOTE | 2021-04-05 09:22 | P.DS ---
Providers Date of admission: 04/04/21 02:47 Expected date of discharge: 04/05/21 Attending physician: Davie Salter Primary care physician: Stated None Hospital Course: Britni is doing very well morning. She continues to have mild elevations in blood pressures 150s over 100s on 30s over 90s. She is tolerating the labetalol well and she is on Augmentin for an elevated white blood cell count and possible infection of her vaginal wall following laceration during delivery. I find no other source for the infection at this time and otherwise she is feeling very well. She's now been afebrile for more than 24 hours with a T-max of 99. She requests and is stable for discharge this time. Prescription for labetalol and Augmentin for 4 to the pharmacy. She will follow up with me on or Monday for repeat blood pressure check and evaluation. She is aware to return with any significant high temperature severe bleeding severe headaches any other signs or symptoms or problems and otherwise at this time she is again stable for discharge. On physical exam again vital signs are overall stable. Heart regular, lungs clear, extremities without pain. Abdomen is soft uterus firm and lochia is overall light. Assessment hypertension and likely vaginal infection. Plan discharged home follow me on or Monday. Patient Condition at Discharge: Good Plan - Discharge Summary New Discharge Prescriptions: New Amoxic-Pot Clav 500-125 mg [Augmentin 500-125 mg] 1 tab PO Q12HR #8 tab Labetalol [Trandate] 100 mg PO BID #60 tablet No Action Pnv No.95/Ferrous Fum/Folic AC [ Multivitamin Tablet] 1 each PO DAILY Ibuprofen [Motrin] 600 mg PO Q6HR PRN #30 tab PRN Reason: Pain Discharge Medication List Pnv No.95/Ferrous Fum/Folic AC [ Multivitamin Tablet] 1 each PO DAILY 02/04/21 [History] Ibuprofen [Motrin] 600 mg PO Q6HR PRN #30 tab 03/31/21 [Rx] Amoxic-Pot Clav 500-125 mg [Augmentin 500-125 mg] 1 tab PO Q12HR #8 tab 04/05/21 [Rx] Labetalol [Trandate] 100 mg PO BID #60 tablet 04/05/21 [Rx] Follow up Appointment(s)/Referral(s): None,Stated [Primary Care Provider] - 1-2 days
[2021-04-05 09:40] VITALS: BP 113/81; PULSE 63; RESP 20; TEMP 98.7
== END 2021-04-05 11:15 | disposition home or self-care (01) ==
LOC: EC 00:14 → 4FBP 02:47
PROVIDERS: ADMIT Obstetrics & Gynecology; ATTEND Obstetrics & Gynecology
DX: O16.5 Unspecified maternal hypertension, complicating the puerperium (principal); O86.4 Pyrexia of unknown origin following delivery; D72.829 Elevated white blood cell count, unspecified; O99.335 Smoking (tobacco) complicating the puerperium; F17.210 Nicotine dependence, cigarettes, uncomplicated; R53.1 Weakness; Z20.822 Contact with and (suspected) exposure to COVID-19; Z87.19 Personal history of other diseases of the digestive system; Z98.890 Other specified postprocedural states; Z82.0 Family history of epilepsy and other diseases of the nervous system; Z83.49 Family history of other endocrine, nutritional and metabolic diseases
CPT/HCPCS: 96361; 96374; 96375; 99284; 36415; 82239; 82570; 80053 ×2; 84156; 83615; 83735 ×2; 84100 ×2; 84550; 85025 ×2; 85610; 85730; 81001; 87635; 71045; G0378 ×2; J0696

== ENCOUNTER 2021-07-25 20:58 | Emergency (ER) | payer OTHER ==
--- NOTE | 2021-07-25 22:12 | ED ---
General Adult HPI - General Stated complaint: Vomiting, weakness Source: patient, RN notes reviewed Mode of arrival: ambulatory Limitations: no limitations - History of Present Illness Initial comments: 24-year-old female presents emergency Department with chief complaint of generalized weakness, nausea vomiting. Patient states that she started a high fever, bodyaches and generalized weakness but states that she Bending down. She continues to have nausea vomiting abdominal pain. She states the fever has resolved. Patient denies any. Patient denies any dysuria hematuria denies any chance . - Related Data Home Medications Medication Instructions Recorded Confirmed Pnv No.95/Ferrous Fum/Folic AC 1 each PO DAILY 02/04/21 04/04/21 [ Multivitamin Tablet] Previous Rx's Medication Instructions Recorded Ibuprofen [Motrin] 600 mg PO Q6HR PRN #30 tab 03/31/21 Amoxic-Pot Clav 500-125 mg 1 tab PO Q12HR #8 tab 04/05/21 [Augmentin 500-125 mg] Labetalol [Trandate] 100 mg PO BID #60 tablet 04/05/21 Ondansetron Odt [Zofran Odt] 4 mg PO Q8HR PRN #10 tab 07/25/21 Allergies Allergy/AdvReac Type Severity Reaction Status Date / Time No Known Allergies Allergy Verified 07/25/21 22:10 Review of Systems ROS Statement: Those systems with pertinent positive or pertinent negative responses have been documented in the HPI. ROS Other: All systems not noted in ROS Statement are negative. Past Medical History Past Medical History: GI Bleed Additional Past Medical History / Comment(s): migraines, abdominal pain and blood in stool History of Any Multi-Drug Resistant Organisms: None Reported Past Surgical History: No Surgical Hx Reported Additional Past Surgical History / Comment(s): Colonoscopy Past Anesthesia/Blood Transfusion Reactions: No Reported Reaction Additional Past Anesthesia/Blood Transfusion Reaction / Comment(s): never had anesthesia Past Psychological History: No Psychological Hx Reported Smoking Status: Current every day smoker Past Alcohol Use History: None Reported Past Drug Use History: Marijuana - Past Family History Mother Family Medical History: Thyroid Disorder Brother(s) Additional Family Medical History / Comment(s): Cerebral Palsy Course Vital Signs 07/25/21 22:10 Temperature 97.7 F Pulse Rate 95 Respiratory 18 Rate Blood Pressure 109/76 O2 Sat by Pulse 99 Oximetry Medical Decision Making - Medical Decision Making Patient is positive for COVID-19. Vitals are within normal limits. There is no hypoxia. Patient will be provided Zofran for antiemetics return for any worsening changing symptoms. - Lab Data Lab Results 07/25/21 Range/Units 22:15 Coronavirus (PCR) Detected A (Not Detectd) Disposition Clinical Impression: COVID-19 Disposition: HOME SELF-CARE Condition: Stable Instructions (If sedation given, give patient instructions): Coronavirus Disease 2019 (COVID-19) Additional Instructions: Please return to the Emergency Department if symptoms worsen or any other concerns. Prescriptions: Ondansetron Odt [Zofran Odt] 4 mg PO Q8HR PRN #10 tab PRN Reason: Nausea Is patient prescribed a controlled substance at d/c from ED?: No Referrals: Mervin Jefferson [Primary Care Provider] - 1-2 days Time of Disposition: 23:34
[2021-07-25 22:14] VITALS: BP 109/76; PULSE 95; RESP 18; TEMP 97.7
[2021-07-25] MEDS ORDERED: ONDANSETRON ODT 4 MG TAB PO STA (22:15)
[2021-07-25] MEDS ORDERED: ONDANSETRON 4 MG ODT STARTER PACK 2 TAB BTL PO STA (23:33)
== END 2021-07-25 23:41 | disposition home or self-care (01) ==
LOC: EC 20:58
DX: U07.1 COVID-19 (principal); F17.200 Nicotine dependence, unspecified, uncomplicated; F12.90 Cannabis use, unspecified, uncomplicated
CPT/HCPCS: 99284; 87635; S0119

== ENCOUNTER 2023-10-04 22:56 | Emergency (ER) | payer OTHER ==
[2023-10-04 23:08] VITALS: BP 117/73; PULSE 91; RESP 18; TEMP 98.4
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
== END 2023-10-05 01:12 | disposition home or self-care (01) ==
LOC: EC 22:56
DX: S09.90XA Unspecified injury of head, initial encounter (principal); F17.200 Nicotine dependence, unspecified, uncomplicated; F12.90 Cannabis use, unspecified, uncomplicated; Y04.0XXA Assault by unarmed brawl or fight, initial encounter
CPT/HCPCS: 70450; 72125; 81025; 99284